=== PATIENT | female | born 1980 | race African-American/Black ===

== ENCOUNTER 2020-08-16 08:29 | Outpatient (CLI) | payer BC, SELFPAY ==
--- NOTE | ~2020-08-16 | MM_ITS ---
EXAMINATION: MM screening jaleesa BI w amita HISTORY: Baseline screening mammogram TECHNIQUE: Craniocaudal and mediolateral oblique 3-D tomosynthesis images were obtained and synthetic 2-D images were generated. CAD analysis was submitted and interpreted. COMPARISON: None, baseline BREAST PARENCHYMAL COMPOSITION: There are scattered areas of fibroglandular density. FINDINGS: There is no evidence of suspicious mass, calcification, or architectural distortion to sugg est malignancy in either breast. IMPRESSION: 1. No mammographic evidence of malignancy. 2. Recommend routine screening mammography in one year. BI-RADS Category 1: Negative Reviewed, dictated and finalized at location A.
== END 2020-08-16 08:30 | disposition home or self-care (01) ==
LOC: ANHIMG 08:35
DX: Z12.31 Encounter for screening mammogram for malignant neoplasm of breast (principal)
CPT/HCPCS: 77063; 77067

== ENCOUNTER 2021-08-29 09:15 | Outpatient (CLI) | payer BC, SELFPAY ==
--- NOTE | ~2021-08-29 | MM_ITS ---
EXAMINATION: MM screening jaleesa BI w amita HISTORY: Screening TECHNIQUE: Craniocaudal and mediolateral oblique 3-D tomosynthesis images were obtained and synthetic 2-D images were generated. CAD analysis was submitted and interpreted. COMPARISON: 08/16/2020 BREAST PARENCHYMAL COMPOSITION: There are scattered areas of fibroglandular density. FINDINGS: There is no evidence of suspicious mass, calcification, or architectural distortion to sugg est malignancy in either breast. There has been no suspicious interval change. IMPRESSION: 1. No mammographic evidence of malignancy. 2. Recommend routine screening mammography in one year. BI-RADS Category 1: Negative Reviewed, dictated and finalized at location A.
== END 2021-08-29 09:16 | disposition home or self-care (01) ==
LOC: ANHIMG 09:17
DX: Z12.31 Encounter for screening mammogram for malignant neoplasm of breast (principal)
CPT/HCPCS: 77063; 77067

== ENCOUNTER 2023-01-06 08:17 | Outpatient (CLI) | payer OTHER, SELFPAY ==
--- NOTE | ~2023-01-06 | MM_ITS ---
EXAMINATION: MM screening jaleesa BI w amita HISTORY: Screening mammogram TECHNIQUE: Craniocaudal and mediolateral oblique 3-D tomosynthesis images were obtained and synthetic 2-D images were generated. CAD analysis was submitted and interpreted. COMPARISON: 08/29/2021, 08/16/2020 bilateral screening mammogram examinations BREAST PARENCHYMAL COMPOSITION: There are scattered areas of fibroglandular density. FINDINGS: There is no evidence of suspicious mass, calcification, or architectural distortion to sugg est malignancy in either breast. There has been no suspicious interval change. IMPRESSION: 1. No mammographic evidence of malignancy. 2. Recommend routine screening mammography in one year. BI-RADS Category 1: Negative Reviewed, dictated and finalized at location A. SHOE EXAMINER
== END 2023-01-06 08:18 | disposition home or self-care (01) ==
LOC: ANHIMG 08:19
DX: Z12.31 Encounter for screening mammogram for malignant neoplasm of breast (principal)
CPT/HCPCS: 77063; 77067

== ENCOUNTER 2025-05-19 14:15 | Outpatient (CLI) | payer OTHER, SELFPAY ==
--- NOTE | ~2025-05-19 | MM_ITS ---
EXAMINATION: MM screening [facility] BI w amtia HISTORY: Screening mammogram TECHNIQUE: Craniocaudal and mediolateral oblique 3-D tomosynthesis images were obtained and synthetic 2-D images were generated. CAD analysis was submitted and interpreted. COMPARISON: 01/06/2023, 08/29/2021, 08/16/2020 BREAST PARENCHYMAL COMPOSITION:Not Dense. There are scattered areas of fibroglandular density. FINDINGS: No suspicious mass, calcification, or architectural distortion are identified in either jenni ast to suggest malignancy. There has been no suspicious interval change. IMPRESSION: No mammographic evidence of malignancy. Recommend routine screening mammography in one year. BI-RADS Category 1: Negative Reviewed, dictated and finalized at location .
--- OUTSIDE RECORDS SUMMARY | 2025-05-19 14:19 | XMS_ITS | Encounter Summary ---
Author Organization [facility] System Address [address] [place] [address] Care Team Providers Care Express Manager Name Role Phone Carlito Stout MD Primary Care Provider [phone] Virgilio Gaviria MD Unavailable [phone] Katy Bain MD Unavailable [phone] Encounter Details Date Type Department Care Team (Latest Contact Info) Description 09/24/2018 Abstract [facility] Jillian Timmons MD Social History Tobacco Use Types Packs/Day Years Used Date Smoking Tobacco: Never Assessed Comments Unknown Sex and Gender Information Value Date Recorded Sex Assigned at Not on file Legal Sex Female 6:28 PM CDT Gender Identity Not on file Sexual Orientation Not on file documented as of this encounter Plan of Treatment Not on file documented as of this encounter Visit Diagnoses Not on filedocumented in this encounter Care Teams Express Manager Relationship Specialty Start Date End Date Carlito Stout MD [address] [place] [address] PCP - General FAMILY PRACTICE 11/04/18 Virgilio Gaviria MD [address] [facility] [place] [address] Hung Trumpet Player CARDIOVASCULAR DISEASE 05/23/19 Katy Bain MD [address] [facility] [place] [address] Consulting Physician ENDOCRINOLOGY 05/30/19 documented as of this encounter
--- OUTSIDE RECORDS SUMMARY | 2025-05-19 14:19 | XMS_ITS | Clinical Summary ---
Author Organization [facility] Address [address] [place] [address] Care Team Providers Care Malthouse Laborer Name Role Phone Hugo Vee MD Primary Care Provider [phone] Source Comments [facility],non-[facility] Affiliates and Associated Physician Practices is amultiple site organization consisting of ambulatory clinics and hospital sitesin [place], [place], [place] and [place]. This disclosure is being madepursuant to the Care Everywhere program and may not contain all information available regarding this patient. 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 Gender Identity Not on file Sexual Orientation Not on file Last Filed Vital Signs Vital Sign Reading Time Taken Comments Blood Pressure 101/75 02/01/2014 12:00 PM CDT Pulse 114 02/01/2014 10:20 AM CDT Temperature 36.4 C (97.6 F) 02/01/2014 10:01 AM CDT Respiratory Rate 20 02/01/2014 12:00 PM CDT Oxygen Saturation 100% 02/01/2014 10:20 AM CDT Inhaled Oxygen Concentration - - Weight 70.3 kg (155 lb) 02/01/2014 10:01 AM CDT Height 162.6 cm (5' 4) 02/01/2014 10:01 AM CDT Body Mass Index 26.61 02/01/2014 10:01 AM CDT Plan of Treatment Health Maintenance Due Date Last Done Comments COLOGUARD (AGES 45-75) - COL ON CA SCREENING 1979 COLON MONITORING 1979 COLONOSCOPY - COLON CA SCREENING 1979 CT COLONOGRAPHY - COLON CA SCREENING 1979 Colorectal Cancer Screening 1979 FIT - COLON CA SCREENING 1979 FLEX SIG - COLON CA SCREENING 1979 LIPID TESTING 1979 MAMMOGRAM 1979 HIV SCREENING 1994 HEPATITIS C SCREENING 10/17/1997 DTAP/TDAP/TD VACCINES (1 - Tdap) 1998 HEPATITIS B VACCINE (1 of 3 - 19+ 3-dose series) 1998 COVID-19 VACCINE (1 - 2023-2 5 season) 2024 DEPRESSION SCREENING 11/19/2024 INFLUENZA VACCINE (Season Ended) 2025 ZOSTER VACCINE (1 of 2) 2029 HIB VACCINE Aged Out No longer eligi ble based on patient's age to complete this topic HPV VACCINE Aged Out No longer eligi ble based on patient's age to complete this topic MENINGOCOCCAL (Group B) VACC INE SHARED DECISION-MAKING Aged Out No longer eligibl e based on patient's age to complete this topic MENINGOCOCCAL GROUPS A/C/Y/W VACCINE Aged Out No longer eligible b ased on patient's age to complete this topic PNEUMOCOCCAL VACCINE Aged Out No long er eligible based on patient's age to complete this topic Care Teams Malthouse Laborer Relationship Specialty Start Date End Date Hugo Vee MD [address] [place] [address] PCP - General 04/23/10
--- OUTSIDE RECORDS SUMMARY | 2025-05-19 14:19 | XMS_ITS ---
Author Organization [facility] Address [address] [place] [address] Care Team Providers Care Calender Operator Name Role Phone Charlotte Madison Primary Care Provider REASON FOR VISIT 4 month f/u bella Encounters Encounter Location Date Provider Diagnosis [facility] - Charlotte Madison [address] [place] [address] 02/09/2025 Charlotte Madison Plan Of Treatment No Information Progress Notes * Stacie OVIEDODOB:1980 (44 yo F)Acc No.[id number]:02/09/2025 Progress Notes Patient: Stacie DIEHL Provider: Brett Madison MD :1980 A ge:44 Y S ex:Female Date:02/09/2025 Address:[facility] [address] [place], [place]-[address] Subjective: * Chief Complaints: * 1 . 4 month f/u bella. * Medical History: Objective: * Vitals: Assessment: Plan: * Treatment: * Billing Information: * Visit Code: * Procedure Codes: * Electronic signature of Elio Madison MD on 05/19/2025 at 02:19 PM CDT Sign off status: Pending * Provider: Brett Madison MD Date: 02/09/2025 Generated for Jason ng/Faelbert/eTransmitting on: 05/19/2025 02:19 PM CDT
--- OUTSIDE RECORDS SUMMARY | 2025-05-19 14:19 | XMS_ITS | Data Portability ---
Author Organization [facility], [place] Address [address] [place] [address] [address] Care Team Providers Care Cold Mill Inspector Name Role Phone MAGDA PERERA Primary Care Provider Assessment Encounter Date Assessment Date Assessment LastModified by Organization Details LastModified Time 05/04/2025 05/04/2025 Annual gynecological exam performed. Patient will come back in a year unless there are new symptoms. [email or web address] Not available 05/04/2025 09:20:02 Plan of Treatment Reminders Order Date Submit Date Provider Last Modified By Organization Details Last Modified Time Details Appointments None recorded. Lab None recorded. Referral endocrinolo gy referral 2023 024 [place], [address], [place], [address], 4 12:56:22 registered dietitian referral 2023 024 [email or web address] Jacque Sanchez, [address], [place], [address], 4 09:38:24 Procedures None recorded. Surgeries None recorded. Imaging MAMMO, screening, digital, bilateral 2024 025 [facility], [address], [address], [place], [address], 5 04:08:25 Medication Orders estradiol 1 mg tablet 2024 025 [facility] #[id number], [address], [place], [place], [id number], 5 09:37:28 progesteron e micronized 100 mg capsule 2024 025 [facility] #09846, [address], [place], [id number], 5 09:37:30 estradiol 1 mg tablet 2023 024 [id number], [address], [place], [id number], 4 10:32:02 estradiol 1 mg tablet [address] [facility] [address] [facility], [address], [place], [id number], 4 11:13:16 Patient TargetsNo targets recorded. Patient InstructionsNo instructions recorded. Reason for Referral Registered Dietitian Referra l for Diabetes mellitus Referring Physician: Shea Schofield GAS EXAMINER, Encounter Date: 01/18/2024 Endocrinology Referral for H ypothyroidism Referring Physician: Shea Schofield GAS EXAMINER, Encounter Date: 03/28/2024 Procedures Surgical History Date Name Laterality Status Provider Name and Address Organization Details Recorded Time 10/29/20 24 completed Petty Castillo [facility] 05/04/2025 09:12:26 07/20/20 23 Date of Last Mammogram completed [facility] 01/18/2024 10:20:49 05/19/20 18 Partial Hysterectomy completed [facility] 01/18/2024 10:25:43 11/19/19 08 Cholecystectomy completed [facility] 01/18/2024 10:24:37 11/19/19 07 Ovarian Cystectomy completed [facility] 01/18/2024 10:25:35 11/19/18 85 Laparotomy completed [facility] 01/18/2024 10:25:18 11/19/18 85 Orthopedic Surgery completed [facility] 01/18/2024 10:26:23 Imaging Results None recorded. Procedure Notes None recorded. Medical Equipment None Reported. Allergies Allergen ID Allergen Name Allergen Category Reaction Reaction Severity Criticality Documentation Date Start Date Code Code System Note Provider Name and Address Organization Details Recorded Time 93953 Penicilli n Not available hives Not available Not available 01/18/2024 17440 RxNorm [facility] 10:03:12 Medications Name Sig Start Date Stop Date Status Note LastModified by Organization Details LastModified Time Synthroid 100 mcg tablet 05/04 completed Not Available Not Available Not Available peg-electro lyte solution 420 gram oral solution TAKE DIRECTED BY OFFICE 05/04 completed Not Available Not Available Not Available estradiol 1 mg tablet TAKE 1 TABLET BY MOUTH DAILY. WITH FOOD active Not Available Not Available No t Available promethazin e 25 mg tablet TAKE 1/2 TABLET BY MOUTH EVERY 6 HOURS NEEDED 05/04 completed Not Available Not Available Not Available Synthroid 112 mcg tablet TAKE 1 TABLET BY MOUTH DAILY active Not Available Not Available No t Available ergocalcife rol (vitamin D2) 1,250 mcg (50,000 unit) capsule TAKE 1 CAPSULE BY MOUTH EVERY WEEK active Not Available Not Available No t Available progesteron e micronized 100 mg capsule TAKE 1 CAPSULE BY MOUTH EVERY DAY active Not Available Not Available No t Available Lantus Solostar U-100 Insulin active Not Available Not Available Not Available Florajen Acidophilus 20 billion cell capsule TAKE ONE CAPSULE BY MOUTH DAILY 05/04 completed Not Available Not Available Not Available OneTouch Verio test strips USE TO TEST DAILY 01/17 completed Not Available Not Available Not Available Basaglar KwikPen U-100 Insulin 100 unit/mL (3 mL) subcutaneou s ADMINISTE R 5 UNITS UNDER THE SKIN EVERY NIGHT AT BEDTIME 05/04 completed Not Available Not Available Not Available Mounjaro 5 mg/0.5 mL subcutaneou s pen injector INJECT 5MG SUBCUTANE OUS WEEKLY active Not Available Not Available No t Available Dexcom G7 Sensor device APPLY NEW SENSOR EVERY 10 DAYS active Not Available Not Available No t Available Vitals Date Recorded Systolic blood pressure Diastolic blood pressure Provider Name and Address Organization Details Last Updated DateTime 01/18/2024 122 mm[Hg] 74 mm[Hg] Shea Schofield, [facility] [address], [place], [address], [facility] 01/18/2024 10:53:07 Date Recorded Body height Body mass index (BMI) Body weight Provider Name and Address Organization Details Last Updated DateTime 01/18/2024 164.47 cm 25 kg/m2 67725.26 g Abby Avalos [facility] 01/18/2024 10:19:06 Date Recorded Body height Body mass index (BMI) Body weight Systolic blood pressure Diastolic blood pressure Provider Name and Address Organization Details Last Updated DateTime 03/28/2024 164.47 cm 25.2 kg/m2 43054.86 g 117 mm[Hg] 82 mm[Hg] Abby Avalos [facility] 4 10:17:45 Date Recorded Body height Body mass index (BMI) Body weight Systolic blood pressure Diastolic blood pressure Provider Name and Address Organization Details Last Updated DateTime 05/04/2025 164.47 cm 21.8 kg/m2 85830.29 g 120 mm[Hg] 82 mm[Hg] Petty Anna [facility] 5 09:20:18 Social History Question Answer Notes LastModified by Organizat ion Details LastModified Time Tobacco Smoking Status Never Smoker Abby Avalos [facility], [facility] 01/18/2024 10:23:49 Do You Have An Advance Directive? No [email or web address] Information n ot available 05/04/2025 Are You Blind Or Do You Have Difficulty Seeing? No Information n ot available 01/18/2024 What Is Your Level Of Caffeine Consumption? Occasional Information not available 01/18/2024 How Much Tobacco Do You Chew? None Information not available 01/18/2024 In The 14 Days Before Symptom Onset, Have You Had Close Contact With A Laboratory-confirm ed COVID-19 While That Case Was Ill? No Information n ot available 01/18/2024 In The 14 Days Before Symptom Onset, Have You Had Close Contact With A Person Who Is Under Investigation For COVID-19 While That Person Was Ill? No Information not available 01/18/2024 Have You Been To An Area Known To Be High Risk For COVID-19? No Information not available 01/18/2024 Are You Deaf Or Do You Have Serious Difficulty Hearing? No Information not available 01/18/2024 What Type Of Diet Are You Following? GLUTENFREE Information n ot available 01/18/2024 What Is The Highest Grade Or Level Of School You Have Completed Or The Highest Degree You Have Received? [id number] Information not available 01/18/2024 Are There Any Guns Present In Your Home? No Information not available 01/18/2024 Do You Use Protection During Sex? No Information not available 01/18/2024 Do You Use Your Seat Belt Or Car Seat Routinely? Yes Information not available 01/18/2024 Are You Sexually Active? Yes Information not available 01/18/2024 Do You Have Smoke And Carbon Monoxide Detectors In Your Home? Yes Information not available 01/18/2024 How Much Tobacco Do You Smoke? No Information not available 01/18/2024 Do You Use Sunscreen Routinely? No Information not available 01/18/2024 Have You Used IV Drugs? No Information not available 01/18/2024 Do You Have Difficulty Walking Or Climbing Stairs? No Information not available 01/18/2024 Sex: Unknown Functional Status Question Answer Note LastModified by Organizat ion Details LastModified Time Do you use any illicit or recreational drugs? No Information not available 01/18/2024 What is your level of alcohol consumption? Occasional Information not available 01/18/2024 Are you able to walk? YESWOREST Information not available 01/18/2024 Are you able to care for yourself? 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 No Information not available 01/18/2024 What is your exercise level? Occasional Information not available 01/18/2024 Mental Status Question Answer Note LastModified by Organization D etails LastModified Time Do you feel stressed (tense, restless, nervous, or anxious, or unable to sleep at night)? [id number] Information not available 01/18/2024 Family History Relationship Description Onset Age of this Age Resolved Age Notes LastModified by Organization Details LastModified Time Mother Hypertensive disorder Not available 2023 10:03:18 Sister Multiple sclerosis Not available 2023 10:03:18 Maternal Grandfather Malignant neoplasm of lung [email or web address] Not available 2024 09:09:30 Medical History Condition Response Diabetes Y Autoimmune disease Y Thyroid Problems Y Gynecological History Statement/Question Response Abnormal Pap N Date of Last Mammogram 07/20/2023 Date of LMP 05/19/2018 On BCP's at Conception? N N Was last menstrual period normal N STIs/STDs N HPV Vaccine N Current Control Method Hysterectom y Age at First Child 24 Are cycles usually normal N Date of Last Colonoscopy Sexually Active? Y Menses Monthly N Age of first menstrual cycle 8 Date of Last Pap Smear Sexual Problems? N 10/29/2024 Y Obstetrics History GPAL:G 2 P 0 0 0 2 Type Value Living 2 Total 2 Past Encounters Encounter ID Performer Location Encounter Start Date Encounter Closed Date Diagnosis/Indication Diagnosis SNOMED-CT Code Diagnosis ICD10 Code Diagnosis Note [id number] Shea Schofield [facility] [address] [address] 01/18/2024 09:59:08 01/18/2024 11:25:12 Menopausal symptom 06506336 N95.1 RTO x 8wks med checkEstro gen only today-hyst erectomy We discussed Menopausal Hormone therapy (MHT) for women with intact uterus with the goals of reliving vaso-motor sx's using estrogen/p rogestin therapy (EPT) using lowest doses for shortest duration in women 40-59yo. Contraindi cations include: Hx of DVT or thrombolic events, High cholestero l, Hx of breast cancer, known CHD, active liver disease, unexplaine d vag bleeding, high risk endometria l cancer, TIA. Side effects can include but are not limited to: Irregular vag bleeding,, breast tenderness , nausea, weight changes, libido changes, nausea. Adverse Rxn: Elevated BP migraine w/ visual changes, breast cancer dx, NE/stroke, DVT/PE, Endometria l cancer. Please contact office with any new or worsening side effects or adverse reactions. Or if a medical emergency please go to nearest ED/[facility] for further evaluation . Due for mammo 07/2024Hx of normal mammosUTD PCP/Lab work Time spent in visit is a total of 30 mins with at least 50% of visit consisting of counseling and review of plan of care. Diabetes mellitus 994025 09 E13.9 DM1-Autoim mune:Refer to new endocrinol ogist-will see her PCP first.We discussed weight loss.Likel y need help from RD and CGM which could work well for DM1.Will see if a CGM is covered by her insurance. Referral with contact info for RD given to schedule. [id number] [facility] [address] [address] 03/28/2024 10:03:11 03/28/2024 10:42:21 Menopausal symptom 10458585 N95.1 Patient is here today for a medicaton check of HRT. She voices goals of therapy have been met with use of this therapy. She denies neg side effects. She is eating, drinking, sleeping well; moods are stable. Wishes to continue this method of HRT. Appropriat e to continue this medication .Counseled on medication R/B's, Most common side effects, & use. All questions were answered to patient satisfacti on. Time spent in visit is a total of 21 mins with at least 50% of visit consisting of counseling and review of plan of care. Hypothyroidism [id number] E03.9 Requested ref new endocrinol ogist. [id number] Henrry Olson MD [facility] [address] [address] 05/04/2025 09:08:56 05/04/2025 09:53:18 Well woman health examination [id number] Z01.419 Annual gynecologi lamont exam performed. Patient will come back in a year unless there are new symptoms. Suggest Calcium with Vitamin D if not eating in diet. Patient advised to get annual flu shot. Recommend yearly physicals and perform monthly breast exams. Genetic testing is available for patients with family history of cancer. Engage in safe sexual practices, use condoms. Encouraged to have daily exercise. Avoid tobacco and illicit drugs, moderation of alcohol. If BMI greater than 25 dietary consult advised. If you have any questions please call or email. mammogram- order given, pt to schedule colon cancer screening - UTD PCP DEXA scan- n/aPap smear- USPSTF recommends against screening for cervical cancer in women older than 65yo, those who've had a hysterecto my for non-cancer indication s, & who have had adequate prior screening & are not otherwise at high risk for cervical cancer. laboratory evaluation - PCP STI testing - declined Menopausal symptom 13443 002 N95.1 Discussed the addition of progestero ne 100 mg PO nightly to help with night sweats and insomnia.R /B/AEs of HRT reviewed.W ill refill estradiol 1 mg PO daily.Ada ent to RTO if no improvemen t in symptoms. Screening mammography 24 398682 Z12.31 Health Concerns Section Related Observation LastModified by Organization Detai ls LastModified Time None Recorded Concern Status LastModified by Organization Details LastModified Time None Recorded Advance Directives Directive N: Payers Insurance Date Sequence Insurance Name Policy Number Policy Crowley Covered Member ID Crowley Member ID Guarantor Name 04/24/2025 1 [facility] Cedric Oviedo [id number] Stacie Oviedo 05/04/2025 1 EDWARD [id number] Cedric Oviedo [id number] Stacie Oviedo Notes Date Note Type Note Provider Name and Address Organization Details Recorded Time 01/18/2024 text/html Menopausal SymptomsReported bypatient.Onset/Timin -12 months Quality:hot flashes times/day;night sweats times/night;mood changes;affects quality of life Severity:moderate Duration:prolonged Context:recent gynecological surgery (05/2018) Alleviating Factors:traditional HRT (Used estradiol patch in the past) Aggravating Factors:heat; stress Associated Symptoms:no abdominal pain; no pelvic pain; no abnormal bleeding; no vaginal discharge; no dysuria; no dyspareunia; no changes in bowel function; no fever; no vaginal dryness; no irritability; no depression; no anxiety; no skin changes; no loss of libido; no changes in urination Here today to discuss restarting estradiol for vasomotor sx's.Hysterectomy for Heavy Painful >10d in 05/2018 tried multiple BC methods.Kept the ovary rightVasomotor sx's include: Hot flashes, irritability, night sweats that disrupt sleepStopped previous patches b/c I was feeling good. Health Hx was reviewed and updated as reported in chart. Shea Schofield [facility] [address], [place], [address], [facility] 01/18/2024 11:22:57 03/28/2024 text/html Here today for medication check of HRT estrdiol 1mg post hyterectomy for non-cancerous indications. Shea Schofield [facility] [address], [place], [address], [facility] 03/28/2024 10:40:48 05/04/2025 text/html Annual GYNReport ed bypatient.Urinary symptoms:No hematuria; No incontinence Vulva:No genital lesion Vagina:Normal vaginal discharge Breast:No breast pain; No breast lump; No nipple discharge Sexual complaints:No sexual complaints; No pain during intercourse; Normal libido Menopausal Symptoms:No menopausal symptoms; Normal vaginal lubrication Psychological symptoms:No depression; No anxiety; No PMDD Preventive measures:Encourage self breast examination; Encourage regular exercise; Encourage no tobacco use; Encourage regular mammograms starting age 40 Patient presents for annual well woman exam. Patient reports decreased hot flashes since starting estradiol 1 mg PO daily. Patient c/o persistent insomnia and night sweats. MARGARITA FAGAN NP [address], [place], [address], [facility] 05/04/2025 09:50:47 OBGyn Episode Ob Episode Information Episode Created Date Number of Fetuses Patient Bloodtype Patient rh Status Prepregnancy Weight lbs Domestic Partner Domestic Partner Phone Father Name Restaurant Greeter Status 01/18/20 24 1 CLOSED Fetus Data First Name Last Name Admitted to NICU Weight (g) Sex Living Outcome Pediatric Complications Fetus ID Race Codes Race Delivery Type 3316.66 4704 F Full Term [id number] Vaginal Delivery Jose Manuel Calculation Initial Jose Manuel Date Initial Exam Date Initial Exam Provider Initial Ultrasound Date Last Menstrual Period Date Ultra Sound Weeks Gestation 0 Eighteen To Twenty Week Jose Manuel Update Ultra Sound Date Fundal Height At Umbil Quickening Date Ultra Sound Latest Weeks Gestation Final Jose Manuel Confirmed By Final Jose Manuel Confirmed Date Final Jose Manuel Date Ultra Sound Latest Days Gestation 0 0 Menstrual History Last Menstrual Date Menses Monthly On Bcp Conception Prior Menses Frequency Hcg Plus Date Menarche Onset Age Delivery Information Delivery Date Delivery Type Labor Anesthesia Weeks Gestation Incision Type Labor Labor Length Hrs Delivered By Post Complications Tubal Sterilization Discharge Date Comments 4 37 Discharge Information Feeding Method Contraceptive Method Maternal HG B and HCT Levels Ob Episode Information Episode Created Date Number of Fetuses Patient Bloodtype Patient rh Status Prepregnancy Weight lbs Domestic Partner Domestic Partner Phone Father Name Restaurant Greeter Status 01/18/20 24 1 CLOSED Fetus Data First Name Last Name Admitted to NICU Weight (g) Sex Living Outcome Pediatric Complications Fetus ID Race Codes Race Delivery Type 2891.64 9 M Full Term [id number] Vaginal Delivery Jose Manuel Calculation Initial Jose Manuel Date Initial Exam Date Initial Exam Provider Initial Ultrasound Date Last Menstrual Period Date Ultra Sound Weeks Gestation 0 Eighteen To Twenty Week Jose Manuel Update Ultra Sound Date Fundal Height At Umbil Quickening Date Ultra Sound Latest Weeks Gestation Final Jose Manuel Confirmed By Final Jose Manuel Confirmed Date Final Jose Manuel Date Ultra Sound Latest Days Gestation 0 0 Menstrual History Last Menstrual Date Menses Monthly On Bcp Conception Prior Menses Frequency Hcg Plus Date Menarche Onset Age Delivery Information Delivery Date Delivery Type Labor Anesthesia Weeks Gestation Incision Type Labor Labor Length Hrs Delivered By Post Complications Tubal Sterilization Discharge Date Comments 5 37 Discharge Information Feeding Method Contraceptive Method Maternal HG B and HCT Levels
--- OUTSIDE RECORDS SUMMARY | 2025-05-19 14:20 | XMS_ITS | Encounter Summary ---
Author Organization [facility] Address [address] [place] [address] Care Team Providers Care Terrazzo Polisher Name Role Phone Carlito Stout MD Primary Care Provider + [phone] Virgilio Gaviria MD Unavailable [phone] Katy Bain MD Unavailable [phone] Encounter Details Date Type Department Care Team (Late st Contact Info) Description 05/28/2019 [facility], [address] [address] Lucrecia Ramey MA Social History Tobacco Use Types Packs/Day Years Used Date Smoking Tobacco: Never Smokeless Tobacco: Never Alcohol Use Standard Drinks/Week Comments Yes 0 (1 standard drink = 0.6 oz pur e alcohol) once monthly Comments No Sex and Gender Information Value Date Recorded Sex Assigned at Not on file Legal Sex Female 6:28 PM CDT Gender Identity Not on file Sexual Orientation Not on file documented as of this encounter Plan of Treatment Not on file documented as of this encounter Procedures Procedure Name Priority Date/Time Associated Diagnosis Comments CBC (OUTSIDE LAB) Routine 05/15/2019 BASIC METABOLIC PANEL Routine 05/15/2019 documented in this encounter Results * BASIC METABOLIC PANEL (05/15/2019) SODIUM S/P/B 138 POTASSIUM S/P/B 3.7 CO2 28 CHLORIDE S/P/B 100 GLUCOSE 99 mg/dL CALCIUM S/P/B 10.3 BUN 10 CREATININE S/P/B 0.90 0.5 - 1.0 EGFR NON-AFR. AMER. >60 <=90 05/15/2019 [facility] Final Result * CBC (OUTSIDE LAB) (05/15/2019) WBC 6.5 HGB 13.4 HCT 40.8 PLT 226 05/15/2019 us Doc [facility]-OUTSIDE/ABSTRACTED Edite d Result - Final documented in this encounter Visit Diagnoses Not on filedocumented in this encounter Care Teams Terrazzo Polisher Relationship Specialty Start Date End Date Carlito Stout MD [address] [facility] [place] [address] PCP - General FAMILY PRACTICE 11/04/18 Virgilio Gaviria MD [address] [facility] [place] [address] [employer] Television Receiver Analyzer CARDIOVASCULAR DISEASE 05/23/19 Katy Bain MD [address] [facility] [place] [address] Consulting Physician ENDOCRINOLOGY 05/30/19 documented as of this encounter
--- OUTSIDE RECORDS SUMMARY | 2025-05-19 14:20 | XMS_ITS | Encounter Summary ---
Author Organization [facility] - [facility] Address [address] [place] [address] Care Team Providers Care Tire Regrooving Machine Operator Name Role Phone Carlito Stout MD Primary Care Provider + [phone] Virgilio Gaviria MD Unavailable [phone] Katy Bain MD Unavailable Encounter Details Date Type Department Care Team (Late st Contact Info) Description 08/30/2022 MyChart Message Enc [facility] Medical Group Diabetes and Endocrinology - [place] [place] [address] [place] [address] [place] [address] Question regarding ALBUMIN, SEMIQUANT Social History Tobacco Use Types Packs/Day Years Used Date Smoking Tobacco: Never Smokeless Tobacco: Never Alcohol Use Standard Drinks/Week Comments Yes 0 (1 standard drink = 0.6 oz pur e alcohol) Once per month or less PHQ-2 Answer Date Recorded PHQ-2 Score - If the patient scores above 3, please move on to questions 3-9 0 08/21/2022 Comments No Sex and Gender Information Value Date Recorded Sex Assigned at Not on file Legal Sex Female 6:28 PM CDT Gender Identity Not on file Sexual Orientation Not on file COVID-19 Exposure Response Date Recorded In the last 10 days, have yo u been in contact with someone who was confirmed or suspected to have Coronavirus/COVID-19? No / Unsure 08/21/2022 9:05 AM CDT documented as of this encounter Plan of Treatment Not on file documented as of this encounter Visit Diagnoses Not on filedocumented in this encounter Additional Health Concerns Assessment Noted Time PHQ-9 Depression Total Score: 0 02/21/20 22 9:22 AM CDT documented as of this encounter Care Teams Tire Regrooving Machine Operator Relationship Specialty Start Date End Date Carlito Stout MD [address] [facility] [place] [address] PCP - General FAMILY PRACTICE 11/04/18 Virgilio Gaviria MD [address] [facility] [place] [address] Hung Personnel Counselor CARDIOVASCULAR DISEASE 05/23/19 Katy Bain MD [address] [facility] [place] [address] Consulting Physician ENDOCRINOLOGY 05/30/19 documented as of this encounter
--- OUTSIDE RECORDS SUMMARY | 2025-05-19 14:20 | XMS_ITS | Encounter Summary ---
Author Organization [facility] - [facility] Address [address] [place] [address] Care Team Providers Care Yard Coupler Name Role Phone Carlito Stout MD Primary Care Provider [phone] Virgilio Gaviria MD Unavailable [phone] Katy Bain MD Unavailable [phone] Encounter Details Date Type Department Care Team (Late st Contact Info) Description 06/25/2020 MyChart Message Enc [facility] Medical Group Multispecialty Care - [facility] [address] [facility] [address], [facility] [address] [place] [id number] [place] [address] [facility] [address] [place] [address] RE: Other Social History Tobacco Use Types Packs/Day Years [...] on filedocumented in this encounter Care Teams Yard Coupler Relationship Specialty Start Date End Date Carlito Stout MD [address] [place] [address] PCP - General FAMILY PRACTICE 11/04/18 Virgilio Gaviria MD [address] [place] [address] Hung Facilities Maintenance Technician CARDIOVASCULAR DISEASE 05/23/19 Katy Bain MD [facility] [place] [address] Consulting Physician ENDOCRINOLOGY 05/30/19 documented as of this encounter
--- OUTSIDE RECORDS SUMMARY | 2025-05-19 14:20 | XMS_ITS | Clinical Summary ---
Author Organization [facility] Address [facility] [place] [address] Care Team Providers Care Differential Repairer Name Role Phone Carlito Stout MD Primary Care Provider + [phone] Virgilio Gaviria MD Unavailable [phone] Katy Bain MD Unavailable [phone] Allergies Active Allergy Reactions Criticality Noted Date Comments Penicillins Hives 08/27/2017 Medications estradiol (ESTRACE) 1 MG tablet Take 1 tablet (1 mg total) by mouth daily. Active SYNTHROID 112 MCG tablet Take 1 tablet (112 mcg total) by mouth daily. 4 Active multivitamin (THERA) tablet Take 1 tablet by mouth daily. Active ondansetron (ZOFRAN-ODT) 4 MG disintegrating tablet Take 1 tablet (4 mg total) by mouth every 8 (eight) hours as needed for Nausea. 20 tablet 4 Active Active Problems Problem Noted Date Diagnosed Date Gastroenteritis 10/02/2024 Hot flashes 08/04/2019 Overview (09/17/2020): 08/04/19 - s/p TVH/LSO in 2018 - increased over last 2 months, not associated with vaginal dryness - will check TSH/FSH - low CV risk for HRT, though discussed incr risk of clotting with estrogen - start estrogen patch pending normal lab tests Precordial pain 05/26/2019 Family history of sickle cell anemia 05/26/2019 Type 1 diabetes mellitus wit hout complication ([facility]) 01/09/2019 Postablative hypothyroidism 01/09/2019 Iron deficiency 04/29/2018 Vitamin D deficiency 10/16/2016 Overview (09/17/2020): Overview: Vitamin D deficiency Chronic fatigue syndrome 07/17/2016 Overview (09/17/2020): Overview: Chronic fatigue Resolved Problems Problem Noted Date Diagnosed Date Resolved Date Prediabetes 05/21/2019 08/22/2021 Diabetes ([facility]) 01/18/2018 0 02/06/2022 Abnormal weight loss 08/27/2017 022 Acquired hypothyroidism 07/17/201601/18 Overview (09/17/2020): Hypothyroidism (acquired) - Graves disease s/p CALDERON - synthroid 88mcg daily - follows w/ [facility] endocrinology - will recheck TSH Immunizations Immunization Administration Dates Next Due Flucelvax 6 Months+ (Prefill ed Syringe) 09/17/2020 Fluzone (IIV3, Trivalent, 0. 5 ML Prefilled Syringe) 10/04/2024 Influenza (Generic) 09/24/2019 Influenza 3 yrs + Preservati ve Free (Fluzone) 09/24/2019 Influenza Adult (Generic) 08/30/2023,,09/17/2020,2017,09/05/2016 MODERNA COVID-19 (12+) MRNA, LNP-S, PF, 100 MCG/ 0.5 ML DOSE 10/31/2021,01/07/2021,12/09/2020 Family History Medical History Relation Comments Hypertension Father Sickle Cell Trait Father Cancer Maternal Grandfather Mental Health Maternal Grandmother Hypertension Mother Diabetes Paternal Grandfather Relation Status Comments Father Alive Maternal Grandfather Maternal Grandmother Mother Alive Paternal Grandfather Social History Tobacco Use Types Packs/Day Years Used Date Smoking Tobacco: Never Smokeless Tobacco: Never Tobacco Cessation:Counseling Given: No Alcohol Use Standard Drinks/Week Comments Yes 0 (1 standard drink = 0.6 oz pur e alcohol) Once per month or less [facility] Utilities Answer Date Recorded In the past 12 months has e electric, gas, oil, or water company threatened to shut off services in your home? No 10/01/2024 Humiliation, Afraid, Rape, and Kick questionnair e Answer Date Recorded Within the last year, have y ou been afraid of your partner or ex-partner? No 10/01/2024 Within the last year, have y ou been humiliated or emotionally abused in other ways by your partner or ex-partner? No Within the last year, have y ou been kicked, hit, slapped, or otherwise physically hurt by your partner or ex-partner? No 10/01/2024 Within the last year, have y ou been raped or forced to have any kind of sexual activity by your partner or ex-partner? No 10/01/2024 Overall Financial Resource Strain (CARDIA) Answe r Date Recorded How hard is it for you to pa y for the very basics like food, housing, medical care, and heating? Not hard at all 10/01/2024 PHQ-2 Answer Date Recorded Patient Health Questionnaire-2 Score 0 02/19/2023 Hunger Vital Sign Answer Date Recorded Within the past 12 months, y ou worried that your food would run out before you got the money to buy more. Never true 10/01/20 24 Within the past 12 months, t he food you bought just didn't last and you didn't have money to get more. Never true 10/01/2024 PRAPARE - Transportation Answer Date Re corded In the past 12 months, has l ack of transportation kept you from medical appointments or from getting medications? No 09/19 In the past 12 months, has l ack of transportation kept you from meetings, work, or from getting things needed for daily living? No 10/01/2024 Housing Stability Vital Sign Answer Efrain e Recorded In the last 12 months, was t here a time when you were not able to pay the mortgage or rent on time? No 10/01/2024 In the past 12 months, how m any times have you moved where you were living? 1 10/01/2024 At any time in the past [address] [facility], were you homeless or living in a jail (including now)? No 10/01/2024 Comments No Sex and Gender Information Value Date Recorded Sex Assigned at Not on file Legal Sex Female 6:28 PM CDT Gender Identity Not on file Sexual Orientation Not on file Last Filed Vital Signs Vital Sign Reading Time Taken Comments Blood Pressure 111/80 10/04/2024 5:03 AM REVIEW SCHEDULING COORDINATOR Pulse 81 10/04/2024 5:03 AM REVIEW SCHEDULING COORDINATOR Temperature 36.9 C (98.4 F) 10/04/2024 5:03 AM REVIEW SCHEDULING COORDINATOR Respiratory Rate 16 10/04/2024 5:03 AM REVIEW SCHEDULING COORDINATOR Oxygen Saturation 100% 10/04/2024 5:03 AM REVIEW SCHEDULING COORDINATOR Inhaled Oxygen Concentration - - Weight 69.4 kg (153 lb) 10/01/2024 11:55 PM REVIEW SCHEDULING COORDINATOR Height 165.1 cm (5' 5) 10/01/2024 4:28 PM REVIEW SCHEDULING COORDINATOR Body Mass Index 25.46 10/01/2024 4:28 PM REVIEW SCHEDULING COORDINATOR Plan of Treatment Health Maintenance Due Date Last Done Comments Colorectal Cancer Screening Colonoscopy (10 Years) 1979 Kidney Health Evaluation 1979 Annual Physical 1982 Hepatitis C 1997 DTaP, Tdap and Td Vaccines (1 - Tdap) 1998 Hepatitis B Vaccines (1 of 3 - 19+ 3-dose series) 1998 Pneumococcal Vaccine: Pediatrics (0 to 5 Years) and At-Risk Patients (6 to 49 Years) (1 of 2 - PCV) 1998 Mammogram Screening 2019 Hemoglobin A1C 02/26/2024 08/27/2023, 0 01/2023, 08/21/2022, Additional history exists COVID-19 Vaccine ( season) 2024 10/31/2021, 01/07/2021, 12/09/2020 Lipid Panel 08/27/2024 08/27/2023, 01/2022, 08/19/2021, Additional history exists PHQ-2 (Physician Dutton) 11/19/2024 Diabetes: Retinopathy Eye Exam 08/20/2025 08/20/2023 HPV Vaccines Aged Out No longer eligi ble based on patient's age to complete this topic Meningococcal B Vaccine Aged Out No l onger eligible based on patient's age to complete this topic Meningococcal Vaccine Aged Out No darin sangeeta eligible based on patient's age to complete this topic RSV Immunizations Under 20 Months Aged Out No longer eligible based on patient's age to complete this topic Procedures Procedure Name Priority Date/Time Associated Diagnosis Comments LIPID PANEL Routine 08/27/2023 8:30 AM CDT Type 1 diabetes mellitus without complication HEMOGLOBIN, GLYCOSYLATED Routine 08/27/2023 8:30 AM CDT Type 1 diabetes mellitus without complication DIABETIC RETINOPATHY EXAM (NEGATIVE)(SCAN ORDER) Routine 08/20/2023 from Last 3 Months or Most Recently Relevant to Health Maintenance Results * HEMOGLOBIN, GLYCOSYLATED (08/27/2023 8:30 AM CDT) HGB A1C 5.4 <5.7 % of total Hgb [place] Comment: For the purpose of screening for the presence of diabetes: <5.7% Consistent with the absence of diabetes 5.7-6.4% Consistent with increased risk for diabetes (prediabetes) > or =6.5% Consistent with diabetes This assay result is consistent with a decreased risk of diabetes. Currently, no consensus exists regarding use of hemoglobin A1c for diagnosis of diabetes in children. According to [place] [employer] Association (ADA) guidelines, hemoglobin A1c <7.0% represents optimal control in non- diabetic patients. Different metrics may apply to specific patient populations. Standards of Medical Care in Diabetes(ADA). 08/27/2023 8:30 AM CDT 08/27/2023 8:31 AM CDT Narrative [facility] - 08/28/2023 11:07 AM CDT FASTING:YES FASTING: YES Resulting Agency Comment Performing Organization Information: Site ID: [facility]: [facility] Address: [address] [place] [address] Director: Krys Page us Abraham Nuno MD LABORATORY Final Result [facility] [address] [address], * LIPID PANEL (08/27/2023 8:30 AM CDT) CHOLESTEROL 166 <200 mg/dL [facility] [place] HDL 63 > OR = 50 mg/dL [place] TRIGLYCERIDES 112 <150 mg/dL [place] LDL (CALCULATED) 82 mg/dL (calc) [place] Comment: Reference range: <100 Desirable range <100 mg/dL for primary prevention; <70 mg/dL for patients with CHD or diabetic patients with > or = 2 CHD risk factors. LDL-C is now calculated using the Edilberto calculation, which is a validated novel method providing better accuracy than the Friedewald equation in the estimation of LDL-C. Scott CHEATHAM et al. LATASHA. 2013;310(19): 0322-2965 (http://education.ITegris/faq/EWN582) CHOL/HDL RATIO 2.6 <5.0 (calc) [place] NON HDL CHOLESTEROL 103 <130 mg/dL (calc) [place] Comment: For patients with diabetes plus 1 major ASCVD risk factor, treating to a non-HDL-C goal of <100 mg/dL (LDL-C of <70 mg/dL) is considered a therapeutic option. 08/27/2023 8:30 AM CDT 08/27/2023 8:31 AM CDT Narrative [facility] - 08/28/2023 11:07 AM CDT FASTING:YES FASTING: YES Resulting Agency Comment Performing Organization Information: Site ID: SL Name: [facility] Address: [address] [place] [id number] Director: Krys Page Abraham Nuno MD LABORATORY Final Result Performing Organization Address [facility] Co de Phone Number [facility] [address] [phone] * DIABETIC RETINOPATHY EXAM (NEGATIVE)(SCAN) (08/20/2023) us [facility] Scanned SCANNING Final Resu lt Performing Organization Address [facility] Co de Phone Number [facility] ONBASE from Last 3 Months or Most Recently Relevant to Health Maintenance Insurance [employer] Advance Directives * Full Code (Latest Code Status on File) Date Activated Date Inactivated Comments 10/02/2024 12:24 AM 10/04/2024 11:49 AM Care Teams Differential Repairer Relationship Specialty Start Date End Date Carlito Stout MD [address] [place] [address] PCP - General FAMILY PRACTICE 11/04/18 Virgilio Gaviria MD [address] [facility] [place] [address] Worker CARDIOVASCULAR DISEASE 05/23/19 Katy Bain MD [address] [facility] [place] [address] Consulting Physician ENDOCRINOLOGY 05/30/19
--- OUTSIDE RECORDS SUMMARY | 2025-05-19 14:20 | XMS_ITS ---
Author Organization [facility] Address [address] [address] Care Team Providers Care Funder Name Role Phone Charlotte Madison Primary Care Provider Migration, Provider Unavailable Unavailable Allergies Allergen (clinical drug ingredient) Drug/Non Drug Allergy documented on EMR Reaction Allergy Type Onset Date Status Penicillin G Benzathine Unknown Drug Allergy Active REASON FOR VISIT [facility] Encounter Medications Medication SIG (Take, Route, Fr equency, Duration) Notes Start Date End Date Status Lantus SoloStar 100 UNIT/ML 5 units subcutaneously every night 06/23/2024 Active Estradiol 1 MG 1 tab(s) orally once a day Active Synthroid 100 MCG 1 tab(s) orally once a day Active Synthroid 112 MCG 1 tab(s) orally once a day for 90 days 07/10/2024 Active Encounters Encounter Location Date Provider Diagnosis [facility] [address] [place] [address] 10/04/2024 Provider Migration Hypothyroidism, unspecified E03.9 Assessments Encounter Date Diagnosis (ICD Code) Assessment Notes Treatment Notes Treatment Clinical Notes Section Notes 10/04/2024 Hypothyroidism, unspecified (ICD-10 - E03.9) Plan Of Treatment Medication Medication Name Sig Start Date Stop Date Notes Synthroid 112 MCG 1 tab(s) orally once a day for 90 days 0 07/10/2024 Progress Notes * Stacie OVIEDODOB:1980 (44 yo F)Acc No.[id number]:10/04/2024 Patient: Keven Stacie AVENDANO Provider: Evaristo headley Migration :1980 A ge:43 Y S ex:Female Date:10/04/2024 Address:[facility] [address], [facility] Pcp:Charlotte Madison Subjective: * Chief Complaints: * 1 . Multum To Medispan Conversion Encounter. * Medical History: * Medications: T aking Lantus SoloStar(Insulin Glargine) 100 UNIT/ML Solution Pen-injector 5 units subcutaneously every night , Taking Synthroid(Levothyroxine Sodium) 100 MCG Tablet 1 tab(s) orally once a day , Taking Estradiol 1 MG Tablet 1 tab(s) orally once a day * Allergies: P enicillin G Benzathine: Allergy - Criticality Unknown. Objective: * Vitals: Assessment: * Assessment: 1. H ypothyroidism, unspecified - E03.9 (Primary) Plan: * Treatment: * Billing Information: * Visit Code: * Procedure Codes: * Electronic signature of Prov ider Migration on 05/19/2025 at 02:19 PM CDT Sign off status: Pending * Provider: Evaristo headley Migration Date: 12/04/2023 Generated for Jason alex/Shamir/eTcasssmitting on: 0 05/19/2025 02:19 PM CDT
--- OUTSIDE RECORDS SUMMARY | 2025-05-19 14:20 | XMS_ITS | Encounter Summary ---
Author Organization [facility] Address [address] [place] [address] Care Team Providers Care Lathe Scalper Operator Name Role Phone Carlito Stout MD Primary Care Provider [phone] Virgilio Gaviria MD Unavailable [phone] Katy Bain MD Unavailable [phone] Encounter Details Date Type Department Care Team (Late st Contact Info) Description 03/29/2021 MyChart Message Enc [facility] Medical Group Diabetes and Endocrinology - [place] [address] [facility] [address] [place] [address] [place] [address] Stephen Lira MD [address] [address] RE: Medication Questions Social History Tobacco Use Types Packs/Day Years Used Date Smoking Tobacco: Never Smokeless Tobacco: Never Alcohol Use Standard Drinks/Week Comments Yes 1 (1 standard drink = 0.6 oz pur e alcohol) Occasionally on weekends PHQ-2 Answer Date Recorded PHQ-2 Score - If the patient scores above 3, please move on to questions 3-9 0 03/28/2021 Comments No Sex and Gender Information Value Date Recorded Sex Assigned at Not on file Legal Sex Female 6:28 PM CDT Gender Identity Not on file Sexual Orientation Not on file COVID-19 Exposure Response Date Recorded In the last month, have you been in contact with someone who was confirmed or suspected to have Coronavirus / COVID-19? No / Unsure 03/28/2021 10:58 AM CDT documented as of this encounter Plan of Treatment Not on file documented as of this encounter Visit Diagnoses Not on filedocumented in this encounter Care Teams Lathe Scalper Operator Relationship Specialty Start Date End Date Carlito Stout MD [address] [place] [address] PCP - General FAMILY PRACTICE 11/04/18 Virgilio Gaviria MD [address] [place] [address] Hung Restorative Aide CARDIOVASCULAR DISEASE 05/23/19 Katy Bain MD [address] [place] [address] Consulting Physician ENDOCRINOLOGY 05/30/19 documented as of this encounter
--- OUTSIDE RECORDS SUMMARY | 2025-05-19 14:20 | XMS_ITS | Patient Health Record ---
Author Organization [facility] Address [address] [address] Care Team Providers Care Packaging Sales Representative Name Role Phone Charlotte Madison Primary Care Provider Gisela Solomon Unavailable [phone] Migration, Provider Unavailable Unavailable Allergies Allergen (clinical drug ingredient) Drug/Non Drug Allergy documented on EMR Reaction Allergy Type Onset Date Status Penicillin G Benzathine Unknown Drug Allergy Active Results Component Value Reference Range Notes COMPREHENSIVE METABOLIC PANE L Reviewed date:06/25/2024 12:27:36 PM Interpretation: Performing Lab:[place], [facility], [address], [place], [address] Krys Page Notes/Report: FASTING:YES FASTING: YES T3, FREE Reviewed date:06/25/2024 12:27:36 PM Interpretation: Performing Lab:[place], [address], [place], [address] Krys Page MD Notes/Report: FASTING:YES FASTING: YES GLUTAMIC ACID DECARBOXYLASE 65 AB Reviewed date:07/07/2024 12:21:11 PM Interpretation: Performing Lab:[facility], [address], [place], [address] Kenton Mendez M.D.,PhD Notes/Report: FASTING:YES FASTING: YES C-PEPTIDE Reviewed date:06/25/2024 12:27:36 PM Interpretation: Performing Lab:[place], [facility], [address], [place], [address] Krys Page MD Notes/Report: FASTING:YES FASTING: YES ESTRADIOL Reviewed date:06/25/2024 12:27:36 PM Interpretation: Performing Lab:[facility], [address] [place], [address] Krys Page Notes/Report: FASTING:YES FASTING: YES HEMOGLOBIN A1c Reviewed date:06/25/2024 12:27:36 PM Interpretation: Performing Lab:Yom[facility]a [facility], [address] [place], [address] Krys Page Notes/Report: FASTING:YES FASTING: YES INSULIN Reviewed date:06/25/2024 12:27:36 PM Interpretation: Performing Lab:[facility], [address] [place], [address] Krys Page MD Notes/Report: FASTING:YES FASTING: YES CBC (INCLUDES DIFF/PLT) Reviewed date:06/25/2024 12:27:36 PM Interpretation: Performing Lab:[facility], [address] [place], [address] Krys Page Notes/Report: FASTING:YES FASTING: YES VITAMIN B12/FOLATE, SERUM PA MAKENZIE Reviewed date:06/25/2024 12:27:36 PM Interpretation: Performing Lab:[facility], [address], [place], [address] Krys Page MD Notes/Report: FASTING:YES FASTING: YES PROGESTERONE Reviewed date:06/25/2024 12:27:36 PM Interpretation: Performing Lab:[facility], [address] [place], [address] Krys Page Notes/Report: FASTING:YES FASTING: YES IRON AND TOTAL IRON BINDING CAPACITY Reviewed date:06/25/2024 12:27:36 PM Interpretation: Performing Lab:[facility], [address], [place], [address] Krys Page MD Notes/Report: FASTING:YES FASTING: YES LIPID PANEL Reviewed date:06/25/2024 12:27:36 PM Interpretation: Performing Lab:[facility], [address] [place], [address] NanySilke Karen Page Notes/Report: FASTING:YES FASTING: YES T4, FREE Reviewed date:06/25/2024 12:27:36 PM Interpretation: Performing Lab:[facility] [facility], [address] [place], [address] NanyAmy Jones Notes/Report: FASTING:YES FASTING: YES TSH Reviewed date:06/25/2024 12:27:36 PM Interpretation: Performing Lab:[place] [facility], [address] [place], [address] NnayAmy Page Notes/Report: FASTING:YES FASTING: YES THYROID PEROXIDASE ANTIBODIE S Reviewed date:06/25/2024 12:27:36 PM Interpretation: Performing Lab:[facility], [address] [facility], [place], [address] [place] Notes/Report: FASTING:YES FASTING: YES THYROID PEROXIDASE ANTIBODIES 5 <9 IU/mL COMPREHENSIVE METABOLIC PANE L Reviewed date:10/02/2024 07:45:13 PM Interpretation: Performing Lab:[place] [facility], [address] [place], [address] Krys Page Notes/Report: T3, FREE Reviewed date:10/02/2024 07:44:05 PM Interpretation: Performing Lab:[place], [address], [place], [place], [address] Krys Page MD Notes/Report: C-PEPTIDE Reviewed date:10/02/2024 07:44:13 PM Interpretation: Performing Lab:[facility], [address], [place], [place], [address] Krys Page MD Notes/Report: HEMOGLOBIN A1c Reviewed date:10/02/2024 08:26:40 PM Interpretation: Performing Lab:[facility] [facility], [address] [place], [address] Krys Page Notes/Report: CBC (INCLUDES DIFF/PLT) Reviewed date:10/02/2024 07:44:27 PM Interpretation: Performing Lab:[facility] [facility], [address] [place], [address] [facility] Notes/Report: MICROALBUMIN, RANDOM URINE ( W/CREATININE) Reviewed date:10/02/2024 07:44:54 PM Interpretation: Performing Lab:CARISA, [facility], [address], [place], [place], [address] Nany-Silke Oneil Page MD Notes/Report: LIPID PANEL Reviewed date:10/02/2024 07:45:24 PM Interpretation: Performing Lab:[place] [facility], [address] [place], [address] [facility] Karen Page Notes/Report: T4, FREE Reviewed date:10/02/2024 07:43:58 PM Interpretation: Performing Lab:[place] [facility], [address] [place], [address] [facility] Karen Page Notes/Report: TSH Reviewed date:10/02/2024 07:43:51 PM Interpretation: Performing Lab:[place] [facility], [address] [place], [address] [facility] Karen Page Notes/Report: Reason For Referral No Information Medications Medication SIG (Take, Route, Fr equency, Duration) Notes Start Date End Date Status Estradiol 1 MG 1 tab(s) orally once a day Active Synthroid 112 MCG 1 tab(s) orally once a day for 90 days 07/10/2024 Active Lantus SoloStar 100 UNIT/ML 5 units subcutaneously every night 06/23/2024 Active Problems Problem Type SNOMED Code ICD Code Onset Dates Problem Status W/U Status Risk Notes Problem Hyperlipidemia (38926309) Hyperlipidemia, unspecified (E78.5) Active confirmed Problem Type II diabetes mellitus without complication (640167140) Type 2 diabetes mellitus without complications (E11.9) Active confirmed Problem Hypothyroidism (52141695) Hypothyroidism, unspecified (E03.9) Active confirmed Problem Type I diabetes mellitus without complication (324818893) Type 1 diabetes mellitus without complications (E10.9) Active confirmed Problem Postoperative Hypothyroidism (96617330) Postprocedural hypothyroidism (E89.0) Active confirmed Problem Postablative ovarian failure (360066578) Symptomatic postprocedural ovarian failure (E89.41) Active confirmed Problem History of excision of intestinal structure (992358795) Acquired absence of other specified parts of digestive tract (Z90.49) Active confirmed Vital Signs Heart Rate 86 /min 10/10/2024 Blood pressure diastolic 80 mm Hg 10/10/2024 Height 65 in 10/10/2024 Blood pressure systolic 114 mm Hg 10/10/2024 Weight 148.0 lbs 10/10/2024 BMI 24.63 kg/m2 10/10/2024 Encounters Encounter Location Date Provider Diagnosis [facility] Madison [address] [place] [address] 07/10/2024 Charlotte Madison Hypothyroidism, unspecified E03.9 ; Hyperlipidemia, unspecified E78.5 and Type 1 diabetes mellitus without complications E10.9 [facility] Charlotte Madison [address] [place] [address] 10/10/2024 Charlotte Madison Postprocedural hypothyroidism E89.0 ; Type 1 diabetes mellitus without complications E10.9 and Symptomatic postprocedural ovarian failure E89.41 [facility] Charlotte Madison [address] [place] [address] 02/09/2025 Charlotte Madison [address] [address] 10/04/2024 Provider Migration Hypothyroidism, unspecified E03.9 [employer] [facility] [address] [place] [address] 06/23/2024 Gisela Solomon Postprocedural hypothyroidism E89.0 ; Type 1 diabetes mellitus without complications E10.9 ; Symptomatic postprocedural ovarian failure E89.41 ; Other fatigue R53.83 ; Pain in unspecified joint M25.50 and Diarrhea, unspecified R19.7 [facility]- [address] [place] [address] 07/16/2024 Charlotte Madison [facility]- [address] [place] [address] 04/20/2025 Charlotte Madison Assessments Encounter Date Diagnosis (ICD Code) Assessment Notes Treatment Notes Treatment Clinical Notes Section Notes 07/10/2024 Hyperlipidemia, unspecified (ICD-10 - E78.5) LDL and TG in range- recommended omega three fatty acids with DHA/EPA oils for LDL/TG reduction. 07/10/2024 Hypothyroidism, unspecified (ICD-10 - E03.9) Patient taking 200 mcg of synthroid once a week- will recommend she take a constant 112 mcg of synthroid daily as she is tolerating well- she cannot do generic LT4 as this doesn't work and she has significant fatigue on generic LT4-will request synthroid 112 mcg daily. 10/10/2024 Postprocedural hypothyroidism (ICD-10 - E89.0) 10/04/2024 Hypothyroidism, unspecified (ICD-10 - E03.9) 06/23/2024 Postprocedural hypothyroidism (ICD-10 - E89.0) - Continue Synthroid 100 mcg/week with one day taking two doses as prescribed. - Order new labs: TSH, free T4, and free T3 levels. Plan: Consider adjusting Synthroid dosage or adding T3 supplementation based on lab results. 07/10/2024 Type 1 diabetes mellitus without complications (ICD-10 - E10.9) Cpeptide over 2 and CAN positive consistent with type IB DM. She is on very low dose of insulin but in honeymoon phase- weight is stable and concern for GLP1 agonist SEs at this time and no clinical indication to start this therapy at this time. Continue on lantus 5 units at bedtime and request CGM for appropriate monitoring as patient will likely require more insulin over time. Will also reach out to [employer] to look into CGM system to maximize her knowledge on blood glucose control in addition to help maximize insulin delivery. 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 She voiced understanding and aware to reach out to us net week if she has not been contacted to start on dexcom therapy. This integrates with T slim and omnipod pumps so if her DM worsens and she requires rapid/bolus insulin for postprandial hyperglycemia the transition will be smooth for patient and reduce risk for hospitalization. Patient was educated on self placement and use of dexcom G7 sensor. Lot number [id number] exp 04/18/2025 handwritten script provided for patient 10/10/2024 Type 1 diabetes mellitus without complications (ICD-10 - E10.9) 06/23/2024 Type 1 diabetes mellitus without complications (ICD-10 - E10.9) - Continue Lantus 5 units at night. - Order new labs: A1C,CMP, CAN antibodies, and C-peptide levels. Plan: Consider discontinuing Lantus or adjusting dosage based on lab results. Consider starting metformin based on lab results and clinical evaluation. 10/10/2024 Symptomatic postprocedural ovarian failure (ICD-10 - E89.41) 06/23/2024 Other fatigue (ICD-10 - R53.83) -Screening B12, Iron, Vit D levels 06/23/2024 Symptomatic postprocedural ovarian failure (ICD-10 - E89.41) - Continue estradiol 1 mg by mouth. -Will check estradiol, progesterone levels with her labs Plan: Monitor for any side effects or complications. 06/23/2024 Pain in unspecified joint (ICD-10 - M25.50) - Assess for potential causes, such as arthritis or autoimmune conditions. Plan: Recommend [id number] pain relievers, such as ibuprofen or naproxen, as needed. 06/23/2024 Diarrhea, unspecified (ICD-10 - R19.7) -Consider stool studies at next visit as she has a hx of abnormal stools. -S/P cholecystectomy sx in 2007. -Pt to continue GF diet. 06/23/2024 Other [facility]: CBC, CMP, HgbA1c, Lipid panel, TSH, FT3, FT4, C-peptide, CAN antibodies, Iron, B12, Vit D, Estradiol, Progesterone levels ordered Case discussed with [facility]. Agree with plan. Charlotte Madison MD 07/10/2024 Other Spent 25 minute s preparing to see the patient (ex review of tests/chart), obtaining and / or reviewing separately obtained history, performing a medically appropriate examination and/or evaluation, counseling and educating the patient/family/caregi deondre, ordering medications, tests, or procedures, referring and communicating with other health care transitions nurse, documenting clinical information in the electronic or other health record, independently interpreting results and communicating results to the patient/family/caregi deondre and care coordinating patient plan. Patient alert and oriented x 4 and aware of discussion noted above and in agreeance to plan in management of type IB DM, hyperlipidemia and hypothyroidism. 10/10/2024 Other Assessment and Plan: 1. Type 1 Diabetes Mellitus:- A1c is outstanding, and patient is using Dexcom for glucose monitoring.- Fasting glucose is 90, and patient is on five insulin implants.- C-peptide decreased from 2.6 to 1.22, indicating a decrease in insulin production.- Patient is advised to monitor post-meal glucose levels and consider reintroducing Lantus if waking up with glucose levels around 120 or higher.- If post-meal glucose levels are consistently high, patient may need Humalog or NovoLog.- If patient requires four to five insulin injections per day, they should consider an insulin pump. 2. Hypothyroidism:- Patient is currently on 112 Synthroid, and TSH and free T4 levels are within normal range.- Plan: Continue Synthroid at 112, and monitor thyroid function. 3. Acute Colitis:- Patient was recently hospitalized for abdominal pain and a CT scan showed colitis.- Patient is scheduled to see a beef cattle farm worker for a colonoscopy to rule out Crohn's disease.- Plan: Follow up with beef cattle farm worker and primary care physician for further evaluation and management. 4. Hormone Replacement Therapy (HRT):- Patient is on estrogen due to a previous hysterectomy and reports improved sleep.- Plan: Monitor for mood lability, irritability, or sleep disturbances, which may indicate a need for progesterone. 5. Lipid Panel:- Triglycerides are 120, total cholesterol is 180, and cholesterol ratio is 2.7.- Patient is taking [place]-3 fatty acid supplements.- Plan: Continue with current management, and monitor lipid levels. 6. Weight and BMI:- Weight is stable, and BMI is under 25.- Plan: Encourage maintenance of healthy weight and lifestyle. Follow-up:- Schedule a follow-up appointment in four months, or sooner if the patient has any concerns or issues. Spent 25 minutes preparing to see the patient (ex review of tests/chart), obtaining and / or reviewing separately obtained history, performing a medically appropriate examination and/or evaluation, counseling and educating the patient/family/caregi deondre, ordering medications, tests, or procedures, referring and communicating with other health care transitions nurse, documenting clinical information in the electronic or other health record, independently interpreting results and communicating results to the patient/family/caregi deondre and care coordinating patient plan. Patient alert and oriented x 4 and aware of discussion noted above and in agreeance to plan in management of type IB DM, hypothyroidism, postmenopausal / on HRT from surgery. Plan Of Treatment No Information Insurance Providers Payer Name Payer Address Payer Phone Subscriber Number Group Number Insured Name Patient Relationship to Insured Coverage Start Date Coverage End Date [employer] [address] [place] [phone] [id number] Stacie Oviedo Self - patient is the insured Medical (General) History Medical History History ICD Code Graves disease Hypothyroidism diabetes fartun menopause Postprocedural hypothyroidism E89.0 Type 1 diabetes mellitus without complic ations E10.9 Symptomatic postprocedural ovarian failu re E89.41 Acquired absence of other specified part s of digestive tract Z90.49 Surgical History Surgery Date(Month/Year) partial hysterectomy 2018 cholecystectomy 2009 R arm fx 1984 bilateral leg fx 1984
--- OUTSIDE RECORDS SUMMARY | 2025-05-19 14:20 | XMS_ITS | Encounter Summary ---
Author Organization [facility] - [facility] Address [address] [place] [address] Care Team Providers Care Fuel Buyer Name Role Phone Carlito Stout MD Primary Care Provider [phone] Virgilio Gaviria MD Unavailable [phone] Katy Bain MD Unavailable [phone] Encounter Details Date Type Department Care Team (Late st Contact Info) Description 08/14/2022 MyChart Message Enc [facility] Diabetes [facility] Endocrinology - [place] [address] [place] [address] [place] [address] [place] [phone] [address] Synthroid Social History Tobacco Use Types Packs/Day Years Used Date Smoking Tobacco: Never Smokeless Tobacco: Never Alcohol Use Standard Drinks/Week Comments Yes 0 (1 standard drink = 0.6 oz pur e alcohol) Once per month or less PHQ-2 Answer Date Recorded PHQ-2 Score - If the patient scores above 3, please move on to questions 3-9 0 02/20/2022 Comments No Sex and Gender Information Value [...] documented as of this encounter Care Teams Fuel Buyer Relationship Specialty Start Date End Date Carlito Stout MD [address] [place] [address] PCP - General FAMILY PRACTICE 11/04/18 Virgilio Gaviria MD [address] [place] [address] [employer] Hose CARDIOVASCULAR DISEASE 05/23/19 Katy Bain MD [address] [facility] [place] [address] Consulting Physician ENDOCRINOLOGY 05/30/19 documented as of this encounter
== END 2025-05-19 14:16 | disposition home or self-care (01) ==
LOC: ANHIMG 14:16
PROVIDERS: PCP Family Medicine; Visit Provider Student in an Organized Health Care Education/Training Program
DX: Z12.31 Encounter for screening mammogram for malignant neoplasm of breast (principal)
CPT/HCPCS: 77063; 77067